=== PATIENT | male | born 1950 | race Hispanic/Latino ===

== ENCOUNTER 2018-06-26 11:48 | Observation (INO) | payer MEDICARE, OTHER ==
--- NOTE | 2018-06-21 11:24 | Diagnostic Imaging Report ---
PROCEDURE: Frontal and lateral views of the chest. COMPARISON: None. INDICATIONS: PREOPERATIVE CHEST XRAY FOR PROSTATE SURGERY FINDINGS: Lines/tubes: None. Lungs: The lungs are well inflated. There is no evidence of pneumonia or pulmonary edema. Pleura: There is no pleural effusion or pneumothorax. Heart and mediastinum: The heart and the mediastinum are normal. Bones: No acute bony abnormality. Partially seen post surgical and extensive degenerative changes of the right shoulder. IMPRESSION: No acute cardiopulmonary disease. Dictated by: DOMO SPENCER M.D. on 06/21/2018 at 10:21 Electronically approved by: DOMO SPENCER M.D. on 06/21/2018 at 10:21
[2018-06-24 11:36] LABS: BASOPHILS % 0.4 % (0.0-1.0); EOSINOPHILS # (AUTO) 0.3 (0.0-0.4); EOSINOPHILS % 3.2 % (0.0-6.0); HEMATOCRIT 40.2 % (38.2-49.6); HEMOGLOBIN 13.9 g/dL (14.0-18.0); LYMPHOCYTES # (AUTO) 3.3 (1.0-3.2); LYMPHOCYTES % 33.5 % (18.0-39.1); MEAN CORPUSCULAR HEMOGLOBIN 31.6 pg (28-32); MEAN CORPUSCULAR HGB CONC 34.6 g/dL (31-35); MEAN CORPUSCULAR VOLUME 91.4 fL (81-99); MONOCYTES # (AUTO) 0.8 (0.2-0.8); MONOCYTES % 8.1 % (4.4-11.3); NEUTROPHILS # (AUTO) 5.4 (2.1-6.9); NEUTROPHILS % 54.3 % (38.7-80.0); PLATELET COUNT 265 x10e3/uL (140-360); RED CELL DISTRIBUTION WIDTH 12.5 % (11.7-14.4)
[2018-06-24 11:51] LABS: ANION GAP 16.7 mmol/L (8-16); BLOOD UREA NITROGEN 23 mg/dL (7-26); BUN/CREATININE RATIO 28 (6-25); CARBON DIOXIDE 28 mmol/L (22-29); CHLORIDE 98 mmol/L (98-107); CREATININE, SERUM 0.82 mg/dL (0.72-1.25); EST GLOMERULAR FILTRATION RATE > 60 ML/MIN (60-); GLUCOSE 102 mg/dL (74-118); POTASSIUM 3.7 mmol/L (3.5-5.1); SODIUM 139 mmol/L (136-145)
[~2018-06-26] VITALS: Ht 165.1 cm; Wt 101.4 kg
[~2018-06-26 11:48] MED LIST: HYZAAR 50-12.51 EACH; LOSARTAN-HCTZ1 EACH PO; METFORMIN HCL850 MG PO; TAMSULOSIN HCL0.4 MG; TAMSULOSIN HCL0.4 MG PO
[2018-06-26] MEDS ORDERED: CEFTRIAXONE SOD 1 GM VIAL ONE (12:50)
[2018-06-26] MEDS ORDERED: ONDANSETRON HCL INJ 2 MG/ML VIAL ONE (13:21)
[2018-06-26] MEDS ORDERED: LIDOCAINE HCL 2% LOCAL INJ 5 ML SDV VIAL INJ ONE (13:21)
[2018-06-26] MEDS ORDERED: PROPOFOL IV EMULSION 10 MG/ML 20 ML VIAL ONE (13:21)
[2018-06-26] MEDS ORDERED: SEVOFLURANE INHAL SOLN 250 ML PEN BTL ONE (13:21)
[2018-06-26] MEDS ORDERED: DEXAMETHASONE SOD PHOS INJ 4 MG/ML VIAL ONE (13:21)
[2018-06-26] MEDS ORDERED: ACETAMINOPHEN 1000 MG/100 ML IV ONE (13:21)
[2018-06-26] MEDS ORDERED: IOPAMIDOL 300MG/ML 50ML INFUS..BTL IV ONE (13:52)
[2018-06-26] MEDS ORDERED: FENTANYL CITRATE/PF 100MCG/2 ML INJ ONE ×2 (14:09→15:42)
[2018-06-26 16:30] VITALS: BP 172/79
[2018-06-26 16:38] VITALS: BP 172/79
--- NOTE | 2018-06-26 16:41 | Operative Report ---
DATE OF PROCEDURE: June 26, 2018 PREOPERATIVE DIAGNOSIS: Urinary retention. POSTOPERATIVE DIAGNOSIS: Urinary retention. PROCEDURE PERFORMED: 1. Cystoscopy. 1. Transurethral section of the prostate. ANESTHESIA: General anesthesia. ESTIMATED BLOOD LOSS: Minimal. INDICATIONS: Mr. Florentin Harper is a 68-year-old gentleman with a recent history of urinary retention that could not be reversed with medical therapy. He now presents for definitive surgical management of his problem. OPERATIVE PROCEDURE IN DETAIL: The patient was brought into the operating room and placed in the supine position and after administration of general anesthesia was placed into the dorsal lithotomy position and prepped and draped in the usual sterile fashion. Cystourethroscopy was performed once the Crowder catheter was removed. The anterior and posterior urethrae were noted to be normal. The prostate revealed trilobar hyperplasia with an irregular growth of the lateral lobar tissues and a moderate elevation of the median bar. The bladder was entered with mild difficulty. Upon entrance into the bladder, there was significant elevation of the trigone. There was also hypervascularity seen in this region. The ureteral orifices were in a normal anatomic position and produced clear efflux. There was a lot of bladder inflammation and edema from the Crowder catheter. There were no other mucosal lesions identified. There were grade 2 trabeculations noted throughout. The bladder was left full, and the cystoscope and the sheath were removed. A 26-[place] resectoscope sheath was then placed in a retrograde fashion, and the [employer] resectoscope was used to perform the procedure. Beginning at the 1 o'clock position and proceeding in a clockwise fashion down to the 6 o'clock position, all of the adenomatous tissue was removed between the bladder neck and the veru. There was no gross penetration or perforation of the capsule noted on this or either side. The [employer] evacuator was used to remove these chips. A repeat procedure was performed on the contralateral side in a counter clockwise fashion beginning at the 12 o'clock position and ending up again at the 6 o'clock position. The residual tissue at the roof and floor of the gland was then resected free. Great care was taken to resect into the trigone so as to prevent undermining the bladder neck. Once all chips removed, these were sent to pathology for microscopic analysis. Once adequate hemostasis was secured, the resectoscope and the sheath removed. The patient had a fair urinary flow with coude. A 24-[place] 3-way catheter was placed in a retrograde fashion and the balloon inflated with approximately 50 mL of sterile water. Urinary efflux was noted to be blood-tinged. The patient was returned to the supine position, and anesthesia was reversed. He was transferred to a bed and taken to the postanesthesia care unit in good condition. Of note, the needle and instrument counts were correct at the conclusion of the case. Job#: [id number]
[2018-06-26] MEDS: DEXTROSE 5%/0.45% SOD CHL 1,000 ML IV SCH (17:30)
[2018-06-26] MEDS: ACETAMINOPHEN/CODEINE 300MG - 30MG TAB PO PRN (19:00)
[2018-06-26 19:40] VITALS: BP 175/80
[2018-06-26] MEDS: TAMSULOSIN HCL 0.4 MG CAP PO SCH (20:43)
[2018-06-26] MEDS ORDERED: LOSARTAN-HCTZ1 EAC1 PO (22:36)
[2018-06-27 00:24] VITALS: BP 135/56
[2018-06-27] MEDS: ACETAMINOPHEN/CODEINE 300MG - 30MG TAB PO PRN ×3 (01:05→23:46)
[2018-06-27] MEDS: DEXTROSE 5%/0.45% SOD CHL 1,000 ML IV SCH ×3 (04:42→23:57)
[2018-06-27 05:53] VITALS: BP 136/62
[2018-06-27 06:18] LABS: ANION GAP 14.1 mmol/L (8-16); BLOOD UREA NITROGEN 17 mg/dL (7-26); BUN/CREATININE RATIO 22 (6-25); CALCIUM 8.7 mg/dL (8.4-10.2); CARBON DIOXIDE 28 mmol/L (22-29); CHLORIDE 98 mmol/L (98-107); CREATININE, SERUM 0.79 mg/dL (0.72-1.25); EST GLOMERULAR FILTRATION RATE > 60 ML/MIN (60-); GLUCOSE 152 mg/dL (74-118); POTASSIUM 4.1 mmol/L (3.5-5.1); SODIUM 136 mmol/L (136-145)
[2018-06-27 08:00] VITALS: BP 126/57
[2018-06-27] MEDS: LOSARTAN POTASSIUM 100 MG TAB PO SCH (09:00)
[2018-06-27] MEDS: METFORMIN HCL 500 MG TAB CR PO SCH (09:00)
[2018-06-27] MEDS: HYDROCHLOROTHIAZIDE 25 MG TAB PO SCH (09:00)
[2018-06-27] MEDS ORDERED: METFORMIN HCL 850 MG TAB PO SCH (09:00)
[2018-06-27 12:28] VITALS: BP 104/52
[2018-06-27 16:17] VITALS: BP 142/65
[2018-06-27] MEDS: TAMSULOSIN HCL 0.4 MG CAP PO SCH (21:00)
[2018-06-27 21:42] VITALS: BP 132/58
[2018-06-28 00:10] VITALS: BP 146/65
[2018-06-28 05:13] VITALS: BP 127/59
[2018-06-28 08:07] VITALS: BP 136/62
[2018-06-28] MEDS: LOSARTAN POTASSIUM 100 MG TAB PO SCH (09:00)
[2018-06-28] MEDS: HYDROCHLOROTHIAZIDE 25 MG TAB PO SCH (09:00)
[2018-06-28] MEDS: METFORMIN HCL 500 MG TAB CR PO SCH (09:00)
[2018-06-28] MEDS: DEXTROSE 5%/0.45% SOD CHL 1,000 ML IV SCH (09:00)
[2018-06-28 12:00] VITALS: BP 122/55
[2018-06-28 16:21] VITALS: BP 142/62
[2018-06-29] MEDS ORDERED: METFORMIN HCL 500 MG TAB CR PO SCH (08:00)
== END 2018-06-28 19:44 | disposition home or self-care (01) ==
LOC: OR 11:48 → PACU V 15:35 → MED/SURG 16:27
PROVIDERS: ADMIT Urology; ATTEND Urology
DX: N40.1 Benign prostatic hyperplasia with lower urinary tract symptoms (principal); R33.8 Other retention of urine; I10 Essential (primary) hypertension; E11.9 Type 2 diabetes mellitus without complications
CPT/HCPCS: 36415 ×4; 52630; 71046; 80048 ×2; 82948 ×3; 85025; 86850; 86900; 88305; 93005; G0378 ×3; J0696; J1100; J2001; J2405